=== PATIENT | male | born 1995 | race Caucasian/White ===

== ENCOUNTER 2016-09-05 20:08 | Emergency (ER) | payer BC, OTHER ==
--- NOTE | ~2016-09-05 | CR21 ---
[facility] A Service of [facility] & [facility] [place] RADIOLOGY TEXT RESULTS PATIENT: GALEN EDEN LOCATION: SED : [birth year] UNIT #: [id number] AGE: [address]: Denny Sheffield SEX: M ORDER DR: [id number] [address] [address] [id number] E MR#: [id number] Acc #: [id number] NAME: GALEN EDEN : 1995 SEX: M STUDY DATE/TIME: 09/05/2016 19:41 UNIT: SED ROOM: STUDY DESCRIPTION: CR Ankle Min 3 Views Rt Attending Physician: Denny Sheffield P.A.-C. Ordering Physician: Debbie Braden A.P.R.N. Primary Care Physician: [facility] MEDICAL IMAGING REPORT This report is preliminary unless electronic signature is present. EXAM Right ankle 3 views, 09/05/2016 HISTORY Right ankle pain and swelling laterally. Twisted ankle while playing volleyball 1 day ago. FINDINGS 3 views of the right ankle demonstrate no fracture. The bones are normally mineralized and the ankle mortise is intact. There is soft tissue swelling overlying the lateral malleolus. IMPRESSION Soft tissue swelling overlying the lateral malleolus. No evidence of fracture. Dictated by... Madi Dooley M.D. THIS IS AN ELECTRONICALLY VERIFIED REPORT Madi Dooley M.D. at 09/06/2016 7:30 AM FEDERICO/lucho TD: 09/05/2016 23:23 JOB #: [id number] MEDICAL IMAGING REPORT Page 1 of 1
[~2016-09-05 20:08] MED LIST: ACETAMINOPHEN; ADVIL200 M1 DOB; ATARAX PO; ATIVAN; BACITRACIN30 GM TOP; BETAMETHASONE D50 GM TOP; ELIMITE60 GM TOP; FLEXERIL10 MG PO; IBUPROFEN PO; KEFLEX500 M1 PO; MOBIC PO; MORGIDOX100 MG PO; MOTRIN600 M1 PO; MOTRIN600 MG PO; NO MEDICATIONS; NORCO 10-325 TA1 TAB PO; PREDNISONE10 MG PO; ROBAXIN500 MG PO; TYLENOL #3 PO; VOLTAREN75 MG PO; ZOFRAN ODT4 MG
== END 2016-09-05 20:41 | disposition home or self-care (01) ==
LOC: CED 20:08
DX: S93.401A Sprain of unspecified ligament of right ankle, initial encounter (principal); W19.XXXA Unspecified fall, initial encounter; Y99.0 Civilian activity done for income or pay
CPT/HCPCS: 29515; 73610; 99283